=== PATIENT | female | born 1985 | race Caucasian/White ===

== ENCOUNTER 2017-03-14 15:17 | Emergency (ER) | payer SELFPAY ==
[~2017-03-14] VITALS: Ht 157.5 cm; Wt 60.0 kg
[2017-03-14 15:19] VITALS: Ht 157.5 cm; Wt 60.0 kg
[2017-03-14 15:43] LABS: URINE BLOOD (Dip) POC Trace-intact (NEGATIVE)
[2017-03-14] MEDS ORDERED: ONDANSETRON (ODT) 4 MG TAB ODT STA (15:45)
--- NOTE | 2017-03-14 15:45 | ERD ---
ER Documentation Chief Complaint Chief Complaint pt bib self with c/o vomiting since last night, HPI Otherwise healthy 32-year-old female presenting 24 hours status post ingestion of sushi. Patient has been vomiting 16 that is described as nonbilious since 4 hours after eating sushi. No similar symptoms in past. No sick contacts. Vaccination status up-to-date. No recent travel. Denies diarrhea, fever, chills, constipation, abdominal pain, dizziness, fatigue, or cough. Patient has no other complaints and describes no other associated manifestations. Nursing notes have been reviewed and are consistent with history given. ROS All systems reviewed and are negative except as per history of present illness. Medications Home Meds Active Scripts Ondansetron (Ondansetron Odt) 4 Mg Tab.rapdis, 4 MG PO Q6H Y for NAUSEA AND/OR VOMITING, #10 TAB Prov:CHANDRA YANCEY PA-C 03/14/17 Allergies Allergies: Coded Allergies: Penicillins (Verified Allergy, Mild, 03/14/17) Physical Exam Vitals Vital Signs Date Time Temp Pulse Resp B/P Pulse Ox O2 Delivery O2 Flow Rate FiO2 03/14/17 15:19 98.3 73 16 128/76 99 Physical Exam Const: Well-appearing and in NAD Head: Atraumatic Eyes: Normal Conjunctiva ENT: Normal External Ears, Nose and Mouth. Neck: Full range of motion..~ No meningismus. Resp: Clear to auscultation bilaterally Cardio: Regular rate and rhythm, no murmurs Abd: Soft, non tender, non distended. Normal bowel sounds. No guarding. Percussion unremarkable. No masses palpated. Negative psoas, Rovsing, obturator, Han's signs. No McBurney's point tenderness. Skin: No petechiae or rashes Back: No midline or flank tenderness. No CVA tenderness. Ext: No cyanosis, or edema Neur: Awake and alert Psych: Normal Mood and Affect Result Diagram: 03/14/17 1545 03/14/17 1545 Results 24 hrs Laboratory Tests Test 03/14/17 15:42 03/14/17 15:45 Bedside Urine pH (LAB) 8.0 Bedside Urine Protein (LAB) 1+ Bedside Urine Glucose (UA) Negative Bedside Urine Ketones (LAB) Negative Bedside Urine Blood Trace-intact Bedside Urine Nitrite (LAB) Negative Bedside Urine Leukocyte Esterase (L 1+ White Blood Count 11.710^3/ul Red Blood Count 4.9910^6/ul Hemoglobin 15.3g/dl Hematocrit 45.9% Mean Corpuscular Volume 92.0fl Mean Corpuscular Hemoglobin 30.7pg Mean Corpuscular Hemoglobin Concent 33.3g/dl Red Cell Distribution Width 12.9% Platelet Count 32395^3/UL Mean Platelet Volume 8.8fl Neutrophils % 80.0% Lymphocytes % 17.3% Monocytes % 1.8% Eosinophils % 0.1% Basophils % 0.4% Nucleated Red Blood Cells % 0.0/100WBC Neutrophils # 9.410^3/ul Lymphocytes # 2.010^3/ul Monocytes # 0.210^3/ul Eosinophils # 0.010^3/ul Basophils # 0.110^3/ul Nucleated Red Blood Cells # 0.010^3/ul Sodium Level 150mmol/L Potassium Level 3.8mmol/L Chloride Level 108mmol/L Carbon Dioxide Level 25mmol/L Anion Gap 21 Blood Urea Nitrogen 7mg/dl Creatinine 0.68mg/dl Glucose Level 118mg/dl Calcium Level 9.0mg/dl Total Bilirubin 0.2mg/dl Direct Bilirubin 0.00mg/dl Indirect Bilirubin 0.2mg/dl Aspartate Amino Transf (AST/SGOT) 28IU/L Alanine Aminotransferase (ALT/SGPT) 34IU/L Alkaline Phosphatase 81IU/L Total Protein 8.3g/dl Albumin 4.9g/dl Globulin 3.40g/dl Albumin/Globulin Ratio 1.44 Current Medications Medications (Trade) Dose Ordered Sig/Taty Route PRN Reason Start Time Stop Time Status Last Admin Dose Admin Ondansetron HCl (Zofran Odt) 4 mg ONCE STAT ODT 03/14/17 15:45 03/14/17 15:46 DC 03/14/17 15:49 Procedures/MDM 32-year-old female presenting with a chief complaint of nausea and vomiting for the past 24 hours status post sushi ingestion. Vomiting 16 times described as nonbilious. Has not taken any medications to relieve the symptoms. No sick contacts. Urinalysis shows leukocyte esterase +1, and hematuria. CBC shows 11.7 WBC with 80 neutrophils.Zofran was given in the ED. Patient passed p.o. fluid challenge first time. Most likely diagnosis is gastroenteritis from food ingestion. I have no suspicion for appendicitis, cold lithiasis cholecystitis, pancreatitis, diverticulitis, or other acute abdomen. Patient will be prescribed Zofran with instructions for 8 hour follow-up. I reviewed the case with my attending who is agreed with assessment and plan. I have spoke with the patient regarding their condition and future management. They have verbally responded that they understand their status and treatment plan. The patients vitals are stable, and their current condition is appropriate for discharge. The patient will be given discharge instructions with return precautions. Discharge medications: Zofran Departure Diagnosis: Primary Impression: Vomiting Vomiting type: unspecified Vomiting Intractability: non-intractable Nausea presence: with nausea Qualified Code: R11.2 - Non-intractable vomiting with nausea, unspecified vomiting type Condition: Stable Additional Instructions: Return in 8 hours for reevaluation. Return the the emergency department immediately if symptoms worsen or change. If you have any questions regarding medications, ask your pharmacist or us before you leave. If any adverse reactions occur while taking your medications, discontinue the treatment and return to the emergency department immediately. Take your medications as directed, and complete the entire course of treatment. CHANDRA YANCEY PA-C Mar 14, 2017 15:45
[2017-03-14 15:55] LABS: BASOPHIL # 0.1 10^3/ul (0.0-0.1); BASOPHILS % 0.4 % (0.0-2.0); EOSINOPHILS % 0.1 % (0.0-7.0); HEMATOCRIT 45.9 % (37.0-47.0); HEMOGLOBIN 15.3 g/dl (12.0-16.0); LYMPHOCYTES % 17.3 % (15.0-51.0); MEAN CORPUSCULAR HEMOGLOBIN 30.7 pg (29.0-33.0); MEAN CORPUSCULAR HGB CONC 33.3 g/dl (32.0-37.0); MEAN PLATELET VOLUME 8.8 fl (7.4-10.4); MONOCYTE # 0.2 10^3/ul (0.3-0.9); MONOCYTES % 1.8 % (0.0-11.0); NEUTROPHIL # 9.4 10^3/ul (1.6-7.5); PLATELET COUNT 333 10^3/UL (140-415); RED BLOOD COUNT 4.99 10^6/ul (4.20-5.40); RED CELL DISTRIBUTION WIDTH 12.9 % (11.5-14.5); WHITE BLOOD COUNT 11.7 10^3/ul (4.8-10.8)
[2017-03-14 16:20] LABS: ALBUMIN 4.9 g/dl (3.3-4.9); ALBUMIN/GLOBULIN RATIO 1.44; BILIRUBIN,INDIRECT 0.2 mg/dl (0-1.1); BILIRUBIN,TOTAL 0.2 mg/dl (0.2-1.3); CREATININE 0.68 mg/dl (0.44-1.00); POTASSIUM 3.8 mmol/L (3.5-5.1); TOTAL PROTEIN 8.3 g/dl (6.1-8.1)
[2017-03-14] MEDS ORDERED: ONDA4TAB14 PO (17:09)
== END 2017-03-14 17:13 | disposition home or self-care (01) ==
LOC: FTE 15:17
DX: R11.2 Nausea with vomiting, unspecified (principal)
CPT/HCPCS: 80053; 81003; 85025; 99283